=== PATIENT | female | born 1985 | race Caucasian/White ===

== ENCOUNTER 2025-05-01 10:30 | Emergency (ER) | payer OTHER ==
[2025-05-01 10:48] VITALS: TEMP 97.9
[2025-05-01] MEDS ORDERED: LORazepam 1 MG/0.5 ML VIAL IV PRN ×3 (11:42)
[2025-05-01] MEDS: LORazepam 1 MG/0.5 ML VIAL IV STA (11:52)
[2025-05-01] MEDS: SODIUM CHLORIDE 0.9% 1,000 ML IV STA ×2 (11:52)
[2025-05-01 11:55] LABS: HCG,Qualitative Serum Not Detected
[2025-05-01 11:59] LABS: ALT 93 U/L (4-34); AST 158 U/L (14-36); African American GFR (CKD) >90 (>60 ml/min/1.73 sqM); Albumin 5.3 g/dL (3.5-5.0); Alkaline Phosphatase 88 U/L (38-126); Anion Gap 14 mmol/L; Blood Urea Nitrogen 11 mg/dL (7-17); Calcium 9.5 mg/dL (8.4-10.2); Carbon Dioxide 27 mmol/L (22-30); Chloride 98 mmol/L (98-107); Glucose 148 mg/dL (74-99); Magnesium 1.7 mg/dL (1.6-2.3); Non-African American GFR(CKD) >90 (>60 ml/min/1.73 sqM); Potassium 4.3 mmol/L (3.5-5.1); Sodium 139 mmol/L (137-145); Total Protein 8.0 g/dL (6.3-8.2)
[2025-05-01 12:00] LABS: Basophils # (A) 0.07 10*3/uL (0.00-0.10); Basophils % (A) 0.8 %; Eosinophils # (A) 0.01 10*3/uL (0.04-0.35); Eosinophils % (A) 0.1 %; HCT 37.8 % (37.2-46.3); HGB 13.4 g/dL (12.0-15.0); Lymphocytes # (A) 0.58 10*3/uL (0.90-5.00); Lymphocytes % (A) 6.8 %; MCH 34.8 pg (27.0-32.0); MCHC 35.4 g/dL (32.0-37.0); MCV 98.2 fL (80.0-97.0); Monocytes # (A) 0.50 10*3/uL (0.20-1.00); Monocytes % (A) 5.9 %; Neutrophils # (A) 7.34 10*3/uL (1.80-7.70); Neutrophils % (A) 86.2 %; RBC 3.85 10*6/uL (4.10-5.20); RDW 11.5 % (11.5-14.5); WBC 8.52 10*3/uL (4.50-10.00)
[2025-05-01 12:07] LABS: NT-Pro-B-Type Natriuretic Pept 93 pg/mL
[2025-05-01 12:13] LABS: INR 0.9 (<1.2); Prothrombin Time 10.3 sec (10.0-12.5)
[2025-05-01 12:21] LABS: Partial Thromboplastin Time 20.2 sec (22.0-30.0)
--- NOTE | 2025-05-01 12:25 | XR ---
EXAMINATION TYPE: XR chest 2V DATE OF EXAM: 05/01/2025 12:19 PM COMPARISON: None TECHNIQUE: XR chest 2V Frontal and lateral views of the chest. CLINICAL INDICATION:Female, 40 years old with history of syncope; FINDINGS: Lungs/Pleura: There is no evidence of pleural effusion, focal consolidation, or pneumothorax. Pulmonary vascularity: Unremarkable. Heart/mediastinum: Cardiomediastinal silhouette is unremarkable. Musculoskeletal: No acute osseous pathology. IMPRESSION: No acute cardiopulmonary disease/process. [facility], , 05/01/2025 12:22 PM
--- NOTE | 2025-05-01 12:25 | CT ---
EXAMINATION TYPE: CT brain wo con CT DLP: 1097.8 mGycm, Automated exposure control for dose reduction was used. DATE OF EXAM: 05/01/2025 12:11 PM COMPARISON: None. CLINICAL INDICATION:Female, 40 years old with history of syncope, Syncopal episode. Hit head. +LOC. N o thinners. TECHNIQUE: Brain: Multiple axial CT images of the brain were obtained without IV contrast. . Coronal and sagitta l reformats reviewed. FINDINGS: Brain: Extra-axial spaces: Hyperdense tiny focus along the left frontal cortex (series 202, measures 36). Ventricular system: Within normal limits Cerebral parenchyma: Mild cerebral atrophy. Focus of hyperattenuation within the right temporal lobe. Additional focus within the left frontal lobe. No mass effect. The suarez-white junction is well diffe rentiated. Cerebellum: Unremarkable. Mass effect: No evidence of midline shift. Intracranial vasculature: unremarkable Soft tissues: Small right forehead soft tissue contusion. Large left scalp subgaleal hyperattenuating hematoma measuring 2.3 cm in thickness. Calvarium/osseous structures: No depressed skull fracture. Paranasal sinuses and mastoid air cells: Clear Visualized orbits: Orbital contents are intact. IMPRESSION: 1. Tiny acute left frontal subarachnoid hemorrhage. Additional 2 foci of acute intraparenchymal hemo rrhage involving the left frontal lobe and right temporal lobe. No mass effect is identified. 2. Large acute left subgaleal hematoma. Acute small right frontal lobe soft tissue contusion. 3. Mild cerebral atrophy which seems more than expected for patient's age. Findings communicated to Dr. Costa Leone MD on 05/01/2025 12:[address] Ray Levin . [facility], , 05/01/2025 12:23 PM
[2025-05-01 12:32] VITALS: RESP 18
[2025-05-01 12:34] LABS: Platelet Count 78 10*3/uL (140-440)
[2025-05-01] MEDS: levETIRAcetam IV 500 MG/5 ML VIAL IVP STA (12:36)
[2025-05-01] MEDS: TRANEXAMIC 1,000 MG/100ML-NACL 1,000 MG in SALINE 1 100ML.BAG IV STA (12:38)
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
[2025-05-01 13:14] VITALS: BP 129/82; PULSE 79
[2025-05-01] MEDS ORDERED: CLEVIDIPINE BUTYRATE 25 MG in EMPTY BAG 1 BAG IV SCH (13:15)
== END 2025-05-01 13:22 | disposition other institution (70) ==
LOC: EDBD → EC 10:30
DX: S06.360A Traumatic hemorrhage of cerebrum, unspecified, without loss of consciousness, initial encounter (principal); S06.6X0A Traumatic subarachnoid hemorrhage without loss of consciousness, initial encounter; F10.939 Alcohol use, unspecified with withdrawal, unspecified; Y90.9 Presence of alcohol in blood, level not specified; W18.30XA Fall on same level, unspecified, initial encounter; Y92.009 Unspecified place in unspecified non-institutional (private) residence as the place of occurrence of the external cause
CPT/HCPCS: 36415; 93005; 85379; 83880; 80053; 83605; 83735; 84443; 84484; 85025; 85610; 85730; 84703; 80320; 71046; 70450; 99291; 96365; 96375 ×2; 96361; J2060; J1953